=== PATIENT | female | born 1940 | race Caucasian/White ===

== ENCOUNTER 2016-04-16 09:58 | Observation (INO) | payer OTHER ==
[~2016-04-16] VITALS: Ht 161.3 cm; Wt 70.6 kg
[2016-04-16 11:11] LABS: HEMATOCRIT 41.4 % (36.0-46.0); MCH 30.7 PG (29.0-34.0); MCHC 34.3 G/DL (30.0-36.0); MCV 89.6 FL (83-99); MEAN PLAT.VOLUME 10.9 uM^3 (9.5-12.4); PLATELET COUNT 152 K/uL (156-360); RBC DIS.WIDTH-CV 13.4 % (11.8-14.6); RBC DIS.WIDTH-SD 43.2 % (39-53); RED BLOOD COUNT 4.62 M/uL (3.80-5.20); WHITE BLOOD COUNT 5.6 K/uL (4.1-10.2)
[2016-04-16 11:23] LABS: CHLORIDE 105 mEq/L (99-109); POTASSIUM 3.9 mEq/L (3.7-5.4); SODIUM 141 mEq/L (136-147)
[2016-04-16 11:25] LABS: GLUCOSE 105 mg/dL (70-99)
[2016-04-16 11:26] LABS: ANION GAP 11 MEQ/L (2-14)
[2016-04-16 11:28] LABS: GFR ESTIMATE (CALCULATED) > 59 mL/min/
[2016-04-16 11:29] LABS: UREA NITROGEN (BUN) 12 mg/dL (9-23)
[2016-04-16 11:36] LABS: TROP-I INTERPRETATION NEGATIVE; TROPONIN-I < 0.01 ng/mL (0.0-0.30)
[2016-04-16] MEDS ORDERED: CRESTOR40 MG PO (14:01)
[2016-04-16] MEDS ORDERED: LISINOPRIL5 MG PO (14:01)
[2016-04-16] MEDS ORDERED: LOW DOSE ASPIRI81 M1 PO (14:02)
[2016-04-16] MEDS ORDERED: METFORMIN HCL500 M1 PO (14:02)
[2016-04-16] MEDS ORDERED: METOPROLOL SUCC50 MG PO (14:02)
[2016-04-16] MEDS ORDERED: CENTRUM SILVER1 EAC4 PO (14:03)
[2016-04-16] MEDS ORDERED: FISH OIL 1,001000 M2 PO (14:03)
[2016-04-16] MEDS ORDERED: VITAMIN C100 MG PO (14:04)
[2016-04-16] MEDS ORDERED: VINEGAR PO (14:06)
[2016-04-16] MEDS ORDERED: CALCIUM 600 MG1 EACH PO (14:08)
[2016-04-16] MEDS ORDERED: PROBIOTIC1 EAC1 PO (14:08)
[2016-04-16] MEDS ORDERED: METAMUCIL SUGA283 GM PO (14:09)
[2016-04-16 16:04] LABS: D-DIMER ELISA 0.47 mg/L FEU (< 0.57)
[2016-04-16 17:00] VITALS: BP 141/72
[2016-04-16 17:48] LABS: TROP-I INTERPRETATION NEGATIVE; TROPONIN-I < 0.01 ng/mL (0.0-0.30)
[2016-04-16 18:58] LABS: Estimated Average Glucose 128 mg/dL (70-123); HEMOGLOBIN A1c (GLYCOHEMOGLOB) 6.1 % HGB (Below 5.7)
[2016-04-16 20:19] VITALS: BP 125/72
[2016-04-16 21:42] LABS: POINT-OF-CARE METER ID UU13113831
[2016-04-16 23:08] LABS: TROP-I INTERPRETATION NEGATIVE; TROPONIN-I < 0.01 ng/mL (0.0-0.30)
[2016-04-17 00:10] VITALS: BP 107/59
[2016-04-17 04:17] VITALS: BP 138/77
[2016-04-17 06:28] LABS: HEMATOCRIT 39.7 % (36.0-46.0); MCH 30.4 PG (29.0-34.0); MCHC 33.2 G/DL (30.0-36.0); MCV 91.5 FL (83-99); MEAN PLAT.VOLUME 11.5 uM^3 (9.5-12.4); PLATELET COUNT 146 K/uL (156-360); RBC DIS.WIDTH-CV 13.6 % (11.8-14.6); RBC DIS.WIDTH-SD 45.4 % (39-53); RED BLOOD COUNT 4.34 M/uL (3.80-5.20); WHITE BLOOD COUNT 6.2 K/uL (4.1-10.2)
[2016-04-17 06:55] LABS: ANION GAP 9 MEQ/L (2-14); CHLORIDE 103 MEQ/L (99-109); GFR ESTIMATE (CALCULATED) > 59 mL/min/; GLUCOSE 91 mg/dL (70-99); SAMPLE HEMOLYSIS CHECK 0; SAMPLE ICTERIC CHECK 0; SAMPLE LIPEMIA CHECK 0; SODIUM 139 MEQ/L (136-147); UREA NITROGEN (BUN) 14 mg/dL (9-23)
[2016-04-17 07:49] VITALS: BP 116/62
[2016-04-17 11:48] VITALS: BP 129/72
[2016-04-17 12:01] LABS: POINT-OF-CARE METER ID UU13113700
[2016-04-17] MEDS ORDERED: PROTONIX40 MG PO (12:01)
== END 2016-04-17 14:09 | disposition home or self-care (01) ==
LOC: EME 09:58 → EDOF 14:30 → 5WEST 14:30
PROVIDERS: Hospitalist; Internal Medicine; Physician Assistant
DX: R07.89 Other chest pain (principal); K44.9 Diaphragmatic hernia without obstruction or gangrene; E11.9 Type 2 diabetes mellitus without complications; E78.5 Hyperlipidemia, unspecified; I25.10 Atherosclerotic heart disease of native coronary artery without angina pectoris; Z98.61 Coronary angioplasty status; Z83.3 Family history of diabetes mellitus; Z82.49 Family history of ischemic heart disease and other diseases of the circulatory system; Z88.8 Allergy status to other drugs, medicaments and biological substances; Z79.82 Long term (current) use of aspirin
CPT/HCPCS: 71020; 80048; 82948; 83036; 84484; 85027; 85379; 93005; 99281; 99285; G0378; J1644; J1815